=== PATIENT | male | born 1965 | race Caucasian/White ===

== ENCOUNTER → 2017-02-21 | Outpatient (CLI) | payer OTHER ==
--- NOTE | 2017-02-23 20:26 | MR ---
EXAMINATION TYPE: MR knee LT wo con DATE OF EXAM: 02/21/2017 COMPARISON: Prior MRI left knee March 21, 2014. HISTORY: Lt knee chronic pain per order. Inner side knee pain and swelling for 3 years per patient. TECHNIQUE: Multiplanar, multisequence images of the knee is performed without IV contrast. FINDINGS: MEDIAL MENISCUS: Anterior and posterior horns are intact without tear. LATERAL MENISCUS: Anterior and posterior horns are intact without tear. CRUCIATE LIGAMENTS: The anterior and posterior cruciate ligaments are intact. There is diffuse increa sed signal and thickening of the anterior cruciate ligament redemonstrated. COLLATERAL LIGAMENTS: The medial collateral ligament and lateral collateral ligament complex are inta ct and unremarkable. EXTENSOR MECHANISM: Visualized quadriceps and patellar tendons are intact. EFFUSION: There is a moderate suprapatellar joint effusion redemonstrated slightly less prominent stanislaw n prior study. POPLITEAL CYST: No popliteal/santos cyst. TRICOMPARTMENT SPACES: There is moderate joint space loss patellofemoral compartment. No significant spurring is seen. CARTILAGE: Tricompartment articular cartilage is fairly well maintained. BONE MARROW SIGNAL: Small frontal heterogeneity is now present. OTHER: No additional significant abn ormality is appreciated. IMPRESSION: 1. Persistent myxoid degeneration anterior cruciate ligament. No full thickness meniscal or ligamento us tear is present. 2. Moderate suprapatellar joint effusion slightly improved versus prior. 3. Moderate degenerative changes patellofemoral compartment without significant progression from prio r.
== END ==
LOC: RADMRIMAIN 14:14
PROVIDERS: ATTEND Family Medicine
DX: M23.307 Other meniscus derangements, unspecified meniscus, left knee (principal); M25.462 Effusion, left knee; M17.12 Unilateral primary osteoarthritis, left knee